=== PATIENT | male | born 1960 | race Caucasian/White ===

== ENCOUNTER 2020-12-26 19:43 | Emergency (ER) | payer BC, OTHER ==
[~2020-12-26] VITALS: Ht 177.8 cm; Wt 83.9 kg
[2020-12-26] MEDS ORDERED: TETANUS-DIPTH-ACEL PERTUSSIS 0.5ML SYR Tdap IM ONE (20:15)
[2020-12-27 00:29] VITALS: BP 144/84
== END 2020-12-27 06:59 | disposition home or self-care (01) ==
LOC: EDBD 19:43 → ER 19:47
DX: S01.81XA Laceration without foreign body of other part of head, initial encounter (principal); R51.9 Headache, unspecified; I10 Essential (primary) hypertension; Z98.890 Other specified postprocedural states; W22.8XXA Striking against or struck by other objects, initial encounter; Y93.89 Activity, other specified; Y92.89 Other specified places as the place of occurrence of the external cause; Y99.8 Other external cause status
CPT/HCPCS: 12013; 70450; 72125; 90471; 90715